=== PATIENT | female | born 1980 ===

== ENCOUNTER 2023-10-24 08:30 | Inpatient (IN) | payer OTHER ==
[2023-10-24] MEDS ORDERED: ATORVASTATIN CA20 MG PO (09:52)
[2023-10-24] MEDS ORDERED: ACIDO FOLICO (09:52)
[2023-10-24] MEDS ORDERED: GLIPIZIDE (09:53)
[2023-10-24] MEDS ORDERED: SYNTHROID125 MCG PO (09:53)
[2023-10-24] MEDS ORDERED: FENOFIBRATE 160MG (09:54)
[2023-10-24] MEDS ORDERED: CRESTOR40 MG PO (09:54)
[2023-10-24] MEDS ORDERED: OMEGA 3 1,0001 EACH (09:54)
[2023-10-24] MEDS ORDERED: PROPRANOLOL 10 MG (09:56)
[2023-10-24] MEDS ORDERED: JENTADUETO (09:57)
[2023-10-24 10:09] LABS: URINE APPEARANCE Cloudy; URINE BILIRRUBIN Negative (NEGATIVE); URINE BLOOD Negative; URINE COLOR Yellow; URINE GLUCOSE Negative (NEGATIVE); URINE LEUKOCYTE Moderate; URINE NITRATE Negative; URINE PROTEIN Negative (NEGATIVE); URINE UROBILINOGEN 0.2 E.U./dl
[2023-10-24 10:17] LABS: URINE BACTERIA 3366.6 uL (0.0-1933); URINE EPITHELIAL CELLS 86.7 uL (0.0-38.8); URINE RBC 14.5 uL (0.0-20.8)
[2023-10-24 10:30] LABS: HEMATOCRIT 40.8 % (36.0-45.00); HEMOGLOBIN 13.6 g/dL (12.0-15.00); MEAN CELL VOLUME 82.4 fL (80.00-100.00); MEAN CORPUSCULAR HEMOGLOBIN 27.4 pg (27.00-32.0); MEAN CORPUSCULAR HGB CONC 33.2 g/dl (32.0-36.0); PLATELET COUNT 329 K/uL (150-450); RED BLOOD COUNT 4.95 M/uL (4.00-6.00); RED CELL DISTRIBUTION WIDTH 14.5 % (11.5-14.5)
[2023-10-24 10:32] LABS: URINE SPERM A
[2023-10-24 10:42] LABS: INR 0.96; PARTIAL THROMBOPLASTIN TIME 30.9 SECONDS (22.0-34.0); PROTHROMBIN TIME 10.1 SECONDS (9.0-11.5)
[2023-10-24 11:12] LABS: CALCIUM 9.5 mg/dL (8.5-10.1); CREATININE SERUM 0.9 mg/dL (0.55-1.02); GFR 68.02; POTASSIUM 4.59 mEq/L (3.5-5.1)
[2023-10-30] MEDS ORDERED: DEXAMETHASONE SODIUM PHOSPHATE 4 MG/ML VIAL ONE (12:03)
[2023-10-30] MEDS ORDERED: CLINDAMYCIN PHOSPHATE 150 MG/ML (600mg) ONE (12:04)
[2023-10-30] MEDS ORDERED: CLINDAMYCIN PHOSPHATE 150 MG/ML (600mg) IV ONE (13:00)
[2023-10-30] MEDS ORDERED: DEXAMETHASONE SODIUM PHOSPHATE 4 MG/ML VIAL IV ONE (13:00)
[2023-10-30] MEDS ORDERED: INSULIN LISPRO 1,000 UNIT/10 ML UNITS SUBCUTANEO PRN (15:00)
[2023-10-30] MEDS ORDERED: DEXTROSE 50 % IN WATER 0.5 G/ML DISP.SYRIN IV PRN (15:00)
[2023-10-30] MEDS ORDERED: ENALAPRILAT DIHYDRATE 1.25 MG/ML VIAL IV PRN (15:00)
[2023-10-30] MEDS ORDERED: ONDANSETRON HCL 2 MG/ML VIAL IV PRN (15:00)
[2023-10-30] MEDS ORDERED: ENALAPRILAT DIHYDRATE 1.25 MG/ML VIAL IV ONE (16:02)
[2023-10-30] MEDS ORDERED: TRAMADOL HCL 50 MG TABLET PO SCH (17:00)
[2023-10-30] MEDS ORDERED: ACETAMINOPHEN 500 MG GEL..CAP PO SCH (21:00)
[2023-10-30] MEDS ORDERED: PANTOPRAZOLE SODIUM 40 MG/VIAL VIAL IV PUSH SCH (21:00)
[2023-10-31] MEDS ORDERED: LEVOTHYROXINE SODIUM 125 MCG TABLET PO SCH (09:00)
[2023-10-31] MEDS ORDERED: PROPRANOLOL HCL 10 MG TABLET PO SCH (09:00)
== END 2023-10-31 14:12 | disposition home or self-care (01) | DRG 627 ==
LOC: SURH 10-30 08:30 → O/R 10-30 09:22 → SURG 10-30 09:22 → SURH 10-30 14:30 → SURG 10-31 14:12
PROVIDERS: ADMIT Otolaryngology; ATTEND Otolaryngology
PROC: 0GTH0ZZ Resection of Right Thyroid Gland Lobe, Open Approach (ICD-10-PCS; principal; 2023-10-30 14:30)
DX: C73 Malignant neoplasm of thyroid gland (principal); Z20.822 Contact with and (suspected) exposure to COVID-19